=== PATIENT | female | born 1990 | race Caucasian/White ===

== ENCOUNTER 2017-07-14 00:19 | Inpatient (IN) ==
--- OUTSIDE RECORDS SUMMARY | 2017-07-14 00:26 | External Medical Summary | Continuity of Care Document ---
:1990 Author Organization [facility] Address [address] [place], [place] [id number] Phone Care Team Providers Name Role Phone Richard Rodrigues MD Unavailable Unavailable Allergies, Adverse Reactions, Alerts Substance Reaction Severity Status Penicillins rash Unknown Active amoxicillin rash Unknown Active sulfamethoxazole Nausea/Vomiting Unknown Active trimethoprim Nausea/Vomiting Unknown Active azithromycin Unknown Active codeine Vomitting Unknown Active Medications Medication Instructions Dosage Effective Status Comments Dates (start - stop) Azo Cranberry + as needed - Active Probiotic 250 mg-30 mg-50 million cell tablet Vitamin take 1 tablet by Not Available - Active tablet oral route every day sertraline 25 mg take 1 tablet by 25 MG - Active tablet oral route every day ondansetron 4 mg take 1 by Oral Not Available - No Longer disintegrating route every 4 Active tablet hours as needed for nausea Problems Condition Effective Dates (start - stop) Clinical Status Encounter for ot general cnsl and advice on procreation Encntr for suprvsn of normal first - preg, third trimester 28 weeks gestation of - Encntr for suprvsn of normal first - preg, third trimester 36 weeks gestation of - Encntr for suprvsn of normal first - preg, third trimester 31 weeks gestation of - Encntr for suprvsn of normal first - preg, third trimester 34 weeks gestation of - Encntr for suprvsn of normal first - preg, third trimester Encounter For Screening For - Streptococcus B 36 weeks gestation of - Encntr for suprvsn of normal first - preg, third trimester 38 weeks gestation of - Encntr for suprvsn of normal first - preg, third trimester 34 weeks gestation of - Anxiety Disorder Active Procedures Procedure Date Unknown Results Test Name Date and Time Measure Units Reference Range Abnormal Flag Comments Unknown Advance Directives Directive Yes / No Effective Date File Name Unknown Encounters Encounter Practice Location Reason(s) Diagnoses Date Provider Care Team Description For Visit Members Liam Baeza Encntr for [place] Referring In Womens suprvsn of normal 1-201 Desire. Provider: Milad PONCE, first preg, third 8 700 Desire [address] [email or web address] weeks Medical [place] L, 1522, gestation of Center [address] [place] [address], Dr [facility] Sabrina HASKINS, 120, [place] , Aryan [facility] 120, [place], tel:[phone] [facility] [id number] , . [id number]. tel: tel:[phone] Liam Baeza Encntr for [place] Referring In Womens suprvsn of normal 4-201 Desire. Provider: Milad PONEC, first preg, third 8 700 Desire PO Box weeks Medical [place] L, 1522, gestation of Center [address] [place] [address], [place] Back, 120, [place] [id number], Aryan [facility] 120, [place], tel:[phone] [facility] [id number] , . [id number]. tel: tel:[phone] Liam Baeza Encntr for [place] Referring In Womens suprvsn of normal 8-201 Desire. Provider: Milad PONCE, first preg, third 8 700 Desire PO Box trimesterEncounte Medical [place] L, 1522, r For Center [address] [place] [address], Screening For Dr [facility] Sabrina HASKINS, [facility] [address] 120, [place] [id number], weeks gestation Baeza, Pito 120, [place] of [place], tel:[phone] [place], , [place]. [id number]. tel: tel: [phone] [facility] Sadi-1 [place] In Womens 5-201 Desire. [facility] [place], 8 700 PO Box Medical 1522, [facility], , [facility] [place], 120, [id number], [place], [place], tel:[phone] , [place]. tel: [phone] Liam Baeza Encntr for Sadi-0 [place] Referring In Womens suprvsn of normal 4-201 Desire. Provider: Health [place], first preg, third 8 700 Desire PO Box [email or web address] weeks Medical [place] L, 1522, gestation of Center [address] [place] [address], Dr Pito [place], 120, Center [id number], Aryan [facility] 120, [place], tel:[phone] [place], , [place]. [id number]. tel: tel: [phone] [facility] Encntr for Sadi-0 [place] Referring In Womens Ultrasound suprvsn of normal 4-201 Desire. Provider: Health [place], first preg, third 8 700 Desire PO Box [email or web address] weeks Medical [place] L, 1522, gestation of [address], Dr [facility] [place]rina [place], 120, Center [id number], Aryan, [facility] 120, [place], tel:[phone] [place], , [place]. [id number]. tel: tel: [phone] [facility] Encntr for Dec-1 [place] Referring In Womens suprvsn of normal 4-201 Desire. Provider: Health [place], first preg, third 7 700 Desire PO Box [email or web address] weeks Medical [place] L, 1522, gestation of Center [address] [place] [address], Pito Back [place], 120, Center [id number], Aryan, [facility] 120, [place], tel:[phone] [place], , [place]. [id number]. tel: tel: [phone] Liam Baeza Encntr for [place] Referring In Womens suprvsn of normal 7-201 Desire. Provider: Milad PONCE, first preg, third 7 700 Desire PO Box [email or web address] weeks Medical [place] L, 1522, gestation of Center [address], , [facility], 120, Center [id number], Aryan, [facility] 120, Aryan HASKINS, tel: [phone] [place], , . [id number]. tel: tel:[phone] Liam Baeza [place] Referring In Womens 5-201 Desire. Provider: Milad PONCE, 7 700 [address]ire PO Box Medical [place], 1522, Center [address], , [facility] Medical [place], 120, Center [id number], Aryan, [facility] 120, Aryan HASKINS, tel: [phone] [facility] , [place]. [id number]. tel: tel:[phone] Liam Baeza Encounter for oth Jul- [place] Referring In Womens general cnsl and 8-201 Desire. Provider: Milad PONCE, advice on 6 700 [place] PO Box procreation Medical [place], 1522, Center [address], , [facility] Medical [place], 120, [place] [id number], Aryan, [facility] 120, [place], tel: [phone] [place] , [place]. [id number]. tel: tel:[phone] Family History Family Member Diagnosis Age At Onset Mother Thyroid Disorder Father polycystic kidney disease Sister polycystic kidney disease Mother Diabetes Immunizations Vaccine Date Status Comments Tdap completed Source: New Immunization Record Influenza, seasonal, injectable, completed Source: Other Provider preservative free, 3 yrs or older Payers Payer name Insurance type Covered libertarian ID Authorization(s) [facility] [id number] [facility] [id number] Social History Type Description Quantity Date Captured Unknown Vital Signs Date / Height Weight BMI Pulse Blood Temperature Respiratory Body Head BMI Time: Rate Pressure Rate Surface Circumference percentile Area Unknown Chief Complaint And Reason For Visit Unknown Chief Complaint And Reason For Visit Reason For Referral Reason For Referral Unknown Plan Of Care Date Type Action Status Appointment Alem Burnett BOOKED Appointment Alem Burnett BOOKED Future Order: Radiology Order Ultrasound OB Follow-up (30120) Ordered Date Type Problem Goal Intervention Status Start Date Unknown. History Of Present Illness Encounter Date Complaint History Of Present Illness This patient has no known history of present illness Functional Status Encounter Date Functional Assessment Cognitive Assessment Unknown Medications Administered Medication Instructions Dosage Effective Dates (start - stop) Status Comments Drug Treatment Unknown Instructions Date Instruction Additional Information Unknown
[2017-07-14] MEDS ORDERED: ACETAMINOPHEN 500 MG TABLET PO PRN (00:52)
[2017-07-14] MEDS ORDERED: CALCIUM CARBONATE Chewable 500mg TABLET PO PRN ×2 (00:52→16:11)
[2017-07-14] MEDS ORDERED: MAG-AL + SIM ORAL LIQUID 30ml PO PRN ×2 (00:52→16:11)
[2017-07-14] MEDS ORDERED: CARBOPROST 250 MCG/ML INJECTION IM PRN (00:52)
[2017-07-14] MEDS ORDERED: LIDOCAINE 1% (10mg/ml) 2mL INJ PF SDV ID PRN ×2 (00:52→08:19)
[2017-07-14] MEDS ORDERED: METHYLERGONOVINE 0.2 MG/ML INJECTION IM PRN (00:52)
[2017-07-14] MEDS: LR 1,000 ML IV PRN ×2 (01:26→02:15)
[2017-07-14] MEDS: D5LR 1,000 ML IV SCH ×2 (01:44→10:13)
--- NOTE | 2017-07-14 01:52 | Anesthesia Preoperative Report ---
Anesthesia Epidural/Spinal Rec - Date and Time Date: 07/14/17 Procedure: Labor Epidural Plan: Epidural - Vital Signs /Para: P:0 - Medictaions & Allergies Inpatient Medications: Current Medications Acetaminophen (Tylenol) 500 - 1,000 mg PO Q4H PRN PRN Reason: Pain Al Hydroxide/Mg Hydroxide (Maalox Plus) 30 ml PO Q3H PRN PRN Reason: Indigestion Calcium Carbonate (Tums) 500 - 1,000 mg PO Q2H PRN PRN Reason: Indigestion Carboprost Tromethamine (Hemabate) 250 mcg IM O PRN PRN Reason: .Downtime Dextrose/Lactated Ringer's (Dextrose 5%-Lactated Ringers) 1,000 mls @ 125 mls/ hr IV .Q8H MINA Lactated Ringer's (Lactated Ringers) 1,000 mls @ 999 mls/hr IV .Q1H1M PRN Lidocaine HCl (Xylocaine-Mpf 1% Vial) 0.2 mg ID O PRN PRN Reason: IV Start Methylergonovine Maleate (Methergine) 0.2 mg IM O PRN Misoprostol (Cytotec) 800 mcg [place] ONCE PRN Allergies/Adverse Reactions: Allergies Allergy/AdvReac Type Severity Reaction Status Date / Time codeine [Codiene] Allergy Mild Nausea Verified 07/08/17 11:00 amoxicillin Allergy Verified 07/08/17 11:00 azithromycin Allergy Verified 07/08/17 11:00 Penicillins Allergy Verified 07/08/17 11:00 sulfamethoxazole Allergy Verified 07/08/17 11:00 trimethoprim Allergy Verified 07/08/17 11:00 - Home Medications Home Medications: Home Medications Medication Instructions Recorded Confirmed Type Cranberry Fruit Extract 06/24/17 07/08/17 History Vitamins 06/24/17 07/08/17 History Zyrtec 06/24/17 07/08/17 History - Medical History Other History: Reports: Now - Surgical History HEENT Surgeries: Reports: Other (as infant) 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 Patient consents. Nursing pain assessment noted. Anesthesia Discussion: spouse Attestation Statement: Prior to the delivery of any anesthetic medication, I examined the patient, developed the plan, obtained the patient's consent and discussed the risk and benefits of the procedure with the patient/guardian.
[2017-07-14] MEDS ORDERED: ROPIVACAINE 1% 10MG/ML INJ 200 MG, SUFentanil 50 MCG in NS 100 ML EPI PRN (02:23)
[2017-07-14] MEDS ORDERED: DiphenhydrAMINE 50 MG/ML INJECTION IVP PRN (02:23)
[2017-07-14] MEDS ORDERED: ONDANSETRON 4 MG/2 ML INJECTION IVP PRN (02:23)
[2017-07-14] MEDS ORDERED: NALOXONE 0.4 MG/ML INJECTION IVP PRN (02:23)
[2017-07-14 02:53] VITALS: BMI 28.0
[2017-07-14] MEDS ORDERED: CALCIUM GLUCONATE 4.65mEq/10ml INJECTION IV PRN (08:19)
[2017-07-14] MEDS ORDERED: CITRIC ACID/SODIUM CITRATE 30ml PO PRN (08:19)
[2017-07-14] MEDS ORDERED: MAGNESIUM SULFATE 6gm PREMIX 6 GM/50 ML BAG IV ONE (08:19)
[2017-07-14] MEDS ORDERED: MAGNESIUM SULFATE DRIP 20 GM/500 ML BAG IV SCH (09:00)
[2017-07-14] MEDS ORDERED: OXYTOCIN DRIP 30 UNIT/500 ML ML IV PRN ×2 (11:51→16:11)
[2017-07-14] MEDS ORDERED: D5LR 1,000 ML IV PRN (11:51)
--- NOTE | 2017-07-14 16:10 | OB/GYN Procedure Note ---
Delivery date: 07/14/17 Events: Pre-Eclampsia Intrapartal events: Severe Preeclampsia Induction method: per pitocin protocol Delivery monitor: external FHT, external uterine Route of delivery: vacuum extraction Laceration description: Perineal - 3rd Degree Delivery repair: vicryl Estimated blood loss (mL): 400 Anesthesia type: Epidural Disposition: floor Complications: Maternal exhaustion - Baby 1 Infant gender: Male presentation: Vertex position: Vertex-by exam Placenta delivery description: Spontaneous cord vessel description: 3 Vessels at 1 minute: 5 at 5 minutes: 9
[2017-07-14] MEDS ORDERED: HYDROCORTISONE 2.5% CREAM 30gm RECTALLY PRN (16:11)
[2017-07-14] MEDS ORDERED: DiphenhydrAMINE 25 MG CAPSULE PO PRN (16:11)
[2017-07-14] MEDS ORDERED: CLINDAMYCIN PB 900 MG/50 ML BAG IV SCH (16:30)
[2017-07-14] MEDS: MAGNESIUM SULFATE DRIP 20 GM/500 ML BAG IV SCH (19:12)
[2017-07-14] MEDS: HYDROCODONE/APAP 5mg/325mg TABLET PO PRN (20:22)
[2017-07-15] MEDS: HYDROCODONE/APAP 5mg/325mg TABLET PO PRN ×5 (04:01→21:44)
[2017-07-15] MEDS: MAGNESIUM SULFATE DRIP 20 GM/500 ML BAG IV SCH ×2 (05:54→16:18)
--- NOTE | 2017-07-15 08:42 | Labor and Delivery Note ---
DATE OF DELIVERY 07/14/2017 DELIVERY NOTE This is a who presented to Labor & Delivery with history of spontaneous rupture of membranes. She was noted to be reji and progressed appropriately for a primip through labor to approximately 8 cm. At 8 cm her labor stalled out and augmentation was performed using Pitocin via the Pitocin protocol. She continued to progress slowly to complete over the next two hours and started pushing when she was complete and +1. After approximately two hours of pushing, she had made progress to +3 station, +4 with caput but complained of maternal exhaustion and requested assistance with delivery. Her bladder was drained and the [facility] Mityvac hard cup was applied under the washtub worker's recommendations. All maternal tissue was excluded and during the contractions the vacuum was applied - pressure up to 50 mmHg to the green. I had three pulls with three contractions, one popoff and a delivery after a total time of 6 minutes with the vacuum being applied. Vacuum pressure was released during the non-contraction period. Elementary Secretary was available to receive baby. The patient had a vacuum-assisted vaginal delivery over intact perineum with epidural anesthesia. Nuchal cord x 1 was reduced. After delivery the cord was clamped and cut and the was handed to the tipping machine operator who was waiting. Spontaneous delivery of the placenta was performed without difficulty and then repair of the third-degree perineal laceration was performed using 2-0 Vicryl for the external anal sphincter and then 2-0 Vicryl for the second-degree repair under standard procedure. The patient did receive postoperative prophylactic antibiotics in the form of clindamycin secondary to a penicillin allergy. Viable male with Apgars of 5/9/9, name "Kayode" and a weight of 3374 g. Estimated blood loss was 400 mL. The patient tolerated the procedure. Sponge, lap and needle counts were correct x 2. The patient remained in the labor suite in stable condition. ARIANNA
[2017-07-15] MEDS: DOCUSATE CALCIUM 240 MG CAPSULE PO SCH (09:11)
[2017-07-15] MEDS: PRENATAL VITAMIN TABLET PO SCH (09:11)
--- NOTE | 2017-07-15 14:57 | OB/GYN Progress Note ---
OB-PP Progress Note - General PPD1 - Subjective Date: 07/15/17 Lochia: Minimal Pain: controlled Voiding: arias still in place Nausea or Vomiting Present: No - Objective Vital Signs: Last Vital Signs Temp 97.4 F 07/15/17 10:00 Pulse 89 07/15/17 14:00 Resp 14 07/15/17 14:00 BP 127/84 07/15/17 14:00 Pulse Ox 99 07/15/17 14:00 Urine Output: good Abdomen: fundus firm, non-tender Laboratory: Laboratory Results - last 24 hr 07/14/17 07/14/17 07/15/17 16:22 16:22 07:09 Cord ABG pH 7.330 Cord ABG pCO2 42 Cord ABG pO2 29 Cord ABG HCO3 22 Cord ABG Total CO2 23.4 Cord ABG Base Excess -3.7 Cord ABG O2 Sat 50.0 Cord VBG pH 7.220 Cord VBG pCO2 59 Cord VBG pO2 12 Cord VBG HCO3 24 Cord VBG Total CO2 25.9 Cord VBG Base Excess -4.4 Cord VBG O2 Sat 9.0 Creatinine 0.6 L GFR Calculation 119 Urine Protein 44 Urine Collection Time 24 Urine Total Volume 2.625 Urine Creatinine 30.8 Patient Height 157.5 Patient Weight 70 Creat Clearance 24 Hr 94.0 Ur Total Protein 24 Hr 1155 H - Assessment Assessment: SP, VAVD, Preeclampsia - Plan MagSO4 through 24 hours PP. Q&A
[2017-07-15] MEDS: IBUPROFEN 800 MG TABLET PO PRN (21:20)
[2017-07-16 02:10] VITALS: O2SAT 96
[2017-07-16] MEDS: MAGNESIUM SULFATE DRIP 20 GM/500 ML BAG IV SCH (02:19)
[2017-07-16] MEDS: HYDROCODONE/APAP 5mg/325mg TABLET PO PRN ×4 (02:44→14:02)
[2017-07-16 03:05] VITALS: PULSE 83
[2017-07-16] MEDS: IBUPROFEN 800 MG TABLET PO PRN (05:34)
[2017-07-16 06:21] VITALS: RESP 14
--- NOTE | 2017-07-16 08:28 | Anesthesia Postoperative Note ---
- Date and Time Date: 07/16/17 Time: 08:28 - Status Patient Participated in Evaluation: Patient Participated in Person Vital Signs: Temperature 98.5 F 07/16/17 06:15 Pulse Rate 83 07/16/17 06:15 Respiratory Rate 14 07/16/17 06:15 Blood Pressure 128/83 07/16/17 06:15 Pulse Oximetry 96 07/16/17 06:15 Respiratory Function: Airway Patent Cardiovascular Function: Regular Pulse Mental Status: Alert and Oriented Pain Intensity: 3 Hydration: Taking PO Fluids Complications During Recover: None Apparent - Follow-Up Instructions Instructions: Per Surgeon
[2017-07-16] MEDS: DOCUSATE CALCIUM 240 MG CAPSULE PO SCH (09:19)
[2017-07-16] MEDS: PRENATAL VITAMIN TABLET PO SCH (09:19)
[2017-07-16 10:56] VITALS: TEMP 98.7
[2017-07-16 12:16] VITALS: BP 122/86
== END 2017-07-16 16:40 | disposition home or self-care (01) | DRG 775 ==
LOC: OBOBS 00:19 → MC 00:21
PROVIDERS: ADMIT Obstetrics & Gynecology; ATTEND Obstetrics & Gynecology